=== PATIENT | female | born 1945 | race Two or more races ===

== ENCOUNTER 2018-11-25 19:21 | Emergency (ER) | payer MEDICARE, BC ==
--- NOTE | 2018-11-25 20:23 | NUR ---
CALLED IN WR, NO ANSWER.
--- NOTE | 2018-11-25 21:10 | NUR ---
PATIENT LEFT, NOT IN WR.
== END 2018-11-25 21:11 | disposition left against medical advice (07) ==
LOC: ER 19:27
DX: Z53.21 Procedure and treatment not carried out due to patient leaving prior to being seen by health care provider (principal)

== ENCOUNTER 2021-10-01 15:41 | Inpatient (IN) | payer MEDICARE, BC ==
[~2021-10-01] VITALS: Ht 154.9 cm; Wt 83.9 kg
--- NOTE | 2021-10-01 16:00 | NUR ---
BIB FAMILY C/O CHEST PAIN NON RADIATING HURTS MORE WHEN SHE COUGHS, PT HAD THE FEVER 10DAYS AGO. CHEST PAIN HAS GOTTEN WORSE. PATIENT WAS PLACED COMFORTABLY IN BED. VITALS CHECKED.
[2021-10-01] MEDS ORDERED: FOLI0.8C PO (16:10)
[2021-10-01] MEDS ORDERED: LEVO125T PO (16:10)
[2021-10-01] MEDS ORDERED: FENO134C PO (16:10)
[2021-10-01] MEDS ORDERED: SERT50TA PO (16:10)
[2021-10-01] MEDS ORDERED: RAYOS PO (16:10)
[2021-10-01] MEDS ORDERED: ASCO500C17 PO (16:10)
[2021-10-01] MEDS ORDERED: ASPI-1169 PO (16:10)
[2021-10-01] MEDS ORDERED: METH2.5T14 PO (16:10)
[2021-10-01] MEDS ORDERED: OLME1TAB92 PO (16:10)
[2021-10-01] MEDS ORDERED: AMLO-212 PO (16:10)
[2021-10-01] MEDS ORDERED: SITA50TA PO (16:10)
[2021-10-01] MEDS ORDERED: IBUP-1957 PO (16:10)
[2021-10-01 16:32] LABS: BASOPHILS % (AUTO) 0.7 % (0.0-2.0); EOSINOPHILS % (AUTO) 0.7 % (0.0-6.0); HEMATOCRIT 35 % (33-45); HEMOGLOBIN 11.7 g/dL (11.5-14.8); LYMPHOCYTES # (AUTO) 1.5 K/uL (0.8-4.8); LYMPHOCYTES % (AUTO) 35.5 % (20.0-44.0); MEAN CORPUSCULAR HGB CONC 34 g/dl (31.0-36.0); MEAN CORPUSCULAR VOLUME 93 fL (82-100); MONOCYTES # (AUTO) 0.4 K/uL (0.1-1.30); MONOCYTES % (AUTO) 8.8 % (2.0-12.0); NEUTROPHILS # (AUTO) 2.3 K/uL (1.8-8.9); NEUTROPHILS % (AUTO) 54.3 % (43.0-81.0); PLATELET COUNT (AUTO) 165 K/uL (150-450); RED BLOOD CELL COUNT(AUTO) 3.76 MIL/uL (4.0-5.2); WHITE BLOOD COUNT (AUTO) 4.3 K/uL (4.3-11.0)
--- NOTE | 2021-10-01 16:46 | NUR ---
COVID SWAB DONE AND SENT TO LAB
[2021-10-01 16:53] LABS: D-DIMER 1.01 mg/L(FEU (0.17-0.50)
[2021-10-01 17:16] LABS: CALCIUM, SERUM 9.5 mg/dL (8.5-10.1); CARBON DIOXIDE 30 mmol/L (21-32); CHLORIDE 104 mmol/L (98-107); CREATININE 1.3 mg/dL (0.6-1.3); GLUCOSE 120 mg/dL (74-106); POTASSIUM 3.1 mmol/L (3.5-5.1); SODIUM SERUM 142 mmol/L (136-145); UREA NITROGEN, BLOOD 23 mg/dL (7-18)
[2021-10-01 17:29] LABS: ALANINE AMINOTRANSFERASE 35 U/L (12-78); ALBUMIN 3.7 g/dL (3.4-5.0); ALKALINE PHOSPHATASE 48 U/L (46-116); ASPARTATE AMINOTRANSFERASE 24 U/L (15-37); BILIRUBIN,DIRECT 0.1 mg/dL (0.0-0.2); BILIRUBIN,TOTAL 0.3 mg/dL (0.2-1.0)
[2021-10-01] MEDS ORDERED: IBUPROFEN 800 MG TABLET PO PRN (17:30)
[2021-10-01] MEDS ORDERED: ACETAMINOPHEN 325 MG TABLET PO PRN (17:30)
[2021-10-01] MEDS ORDERED: ONDANSETRON HCL/PF 4 MG/2 ML VIAL IVP PRN (17:30)
[2021-10-01] MEDS ORDERED: Z GUARD REMEDY 4 OZ OINT TP PRN (17:30)
[2021-10-01] MEDS ORDERED: ZOLPIDEM TARTRATE 5 MG TABLET PO PRN (17:30)
[2021-10-01] MEDS ORDERED: MAG HYDROX/AL HYDROX/SIMETH 30 ML UDC PO PRN (17:30)
[2021-10-01] MEDS ORDERED: IV NS 0.9% 1,000 ML BAG IV ONE (17:30)
[2021-10-01] MEDS ORDERED: MAGNESIUM HYDROXIDE 30 ML UDC PO PRN (17:30)
[2021-10-01] MEDS ORDERED: IOHEXOL-350 100 ML VIAL IV ONE (17:42)
[2021-10-01] MEDS ORDERED: IV NS 0.9% 250 ML IV ONE (17:43)
--- NOTE | 2021-10-01 17:44 | NUR ---
PATIENT WHEELED TO CT DEPARTMENT.
[2021-10-01] MEDS ORDERED: LOSARTAN POTASSIUM 25 MG TABLET PO ONE (18:00)
[2021-10-01] MEDS ORDERED: ASPIRIN 81 MG TAB.CHEW PO ONE (19:30)
[2021-10-01] MEDS ORDERED: ASPIRIN 81 MG TAB.CHEW ONE (19:35)
--- NOTE | 2021-10-01 20:08 | NUR ---
310-2 PER RN TUBE SORTER
[2021-10-01 20:34] VITALS: BP 149/79
--- NOTE | 2021-10-01 20:34 | NUR ---
report given to rn
--- NOTE | 2021-10-01 22:00 | NUR ---
RN NOTE RECEIVED CALL FROM PHARMACY REGARDING PATIENT MEDICATION; PHARMACY INFORMED PATIENT HAS NOT ARRIVED TO UNIT YET; PER PHARMACY, NEED TO KNOW WHEN PATIENT TAKES METHOTREXATE SINCE IT IS TAKEN ONCE A WEEK; WILL ASK PATIENT UPON ARRIVAL TO UNIT; PHARMACY CALLED AGAIN REGARDING FENOFIBRATE MED: WE DO NOT CARRY THIS CERTAIN MEDICATION IN HOUSE, WILL ADVISE PATIENT TO HAVE FAMILY MEMBER BRING MEDICATION FOR HER IN AM;
--- NOTE | 2021-10-01 22:34 | NUR ---
PATIENT TRANSFERRED TO [facility]
--- NOTE | 2021-10-01 22:50 | NUR ---
RN NOTE PATIENT VERBALIZED SHE TAKES METHOTREXATE EVERY MONDAY; PHARMACY MADE AWARE; PATIENT INFORMED SO PHARMACY DOES NOT CARRY FENOFIBRATE IN HOUSE, PER PATIENT, SHE DOES NOT NEED TO HAVE IT SHE FEELS IT IS NOT IMPORTANT. PATIENT ADVISED THAT ALL HOME MEDICATION SHOULD BE CONTINUED DURING HOSPITALIZATION, AND COMPLIANCE WITH MEDICATIONS ARE IMPORTANT WELL; PATIENT SAID IT IS OK, NO NEED TO HAVE HER SON BRING; PATIENT'S SON AT BEDSIDE AND AWARE OF SITUATION;
--- NOTE | 2021-10-01 23:30 | NUR ---
TELE/RN NOTE RECEIVED REPORT FROM VAHE LAMBERT. PATIENT IS ALERT AND ORIENTED X 4. ABLE TO MAKE NEEDS KNOWN. DENIES PAIN AT THIS TIME. CONTINUES ON ROOM AIR WITH NO S/SX OF RESPIRATORY DISTRESS NOTED. IV ACCESS TO LEFT AC #18G INTACT, PATENT AND SALINE LOCKED. DENIES SOB OR CP AT THIS TIME. PATIENT IS AMBULATORY WITH STEADY GAIT. CALL LIGHT WITHIN REACH. ASPIRATION, FALL AND SAFETY PRECAUTIONS MAINTAINED. ALL NEEDS ATTENDED TO AT THIS TIME.
[2021-10-02 00:18] VITALS: BP 134/64
[2021-10-02 03:54] VITALS: BP 129/78
--- NOTE | 2021-10-02 06:10 | NUR ---
TELE/RN CLOSING NOTE PATIENT IS CURRENTLY SLEEPING IN BED. ALERT AND ORIENTED X 4. ABLE TO MAKE NEEDS KNOWN. DENIES PAIN AT THIS TIME. CONTINUES ON ROOM AIR WITH NO S/SX OF RESPIRATORY DISTRESS NOTED. IV ACCESS TO LEFT AC #18G INTACT, PATENT AND SALINE LOCKED. DENIES SOB OR CP AT THIS TIME. CONTINUES ON TELE MONITOR WITH CURRENT READING SR. PATIENT IS AMBULATORY WITH STEADY GAIT. CALL LIGHT WITHIN REACH. ASPIRATION, FALL AND SAFETY PRECAUTIONS MAINTAINED. WILL ENDORSE PLAN OF CARE TO ONCOMING RN.
[2021-10-02 06:39] LABS: BASOPHILS % (AUTO) 0.2 % (0.0-2.0); EOSINOPHILS % (AUTO) 1.2 % (0.0-6.0); HEMATOCRIT 32 % (33-45); HEMOGLOBIN 10.9 g/dL (11.5-14.8); LYMPHOCYTES # (AUTO) 2.4 K/uL (0.8-4.8); LYMPHOCYTES % (AUTO) 58.1 % (20.0-44.0); MEAN CORPUSCULAR HGB CONC 35 g/dl (31.0-36.0); MEAN CORPUSCULAR VOLUME 92 fL (82-100); MONOCYTES # (AUTO) 0.4 K/uL (0.1-1.30); MONOCYTES % (AUTO) 9.1 % (2.0-12.0); NEUTROPHILS # (AUTO) 1.3 K/uL (1.8-8.9); NEUTROPHILS % (AUTO) 31.4 % (43.0-81.0); PLATELET COUNT (AUTO) 130 K/uL (150-450); RED BLOOD CELL COUNT(AUTO) 3.43 MIL/uL (4.0-5.2); WHITE BLOOD COUNT (AUTO) 4.1 K/uL (4.3-11.0)
[2021-10-02 07:07] LABS: CALCIUM, SERUM 9.6 mg/dL (8.5-10.1); CARBON DIOXIDE 26 mmol/L (21-32); CHLORIDE 104 mmol/L (98-107); GLUCOSE 91 mg/dL (74-106); MAGNESIUM 1.4 mg/dL (1.8-2.4); PHOSPHORUS 5.1 mg/dL (2.5-4.9); SODIUM SERUM 141 mmol/L (136-145); UREA NITROGEN, BLOOD 18 mg/dL (7-18)
--- NOTE | 2021-10-02 07:25 | NUR ---
DIRECTOR DIVERSITY NOTES PT IN BED, AWAKE, ALERT AND ORIENTED, SEEN AND EXAMINED BY DR. HEDRICK, PLAN OF CARE DISCUSSED WITH PT, VERBALIZED UNDERSTANDING.
[2021-10-02] MEDS ORDERED: Magnesium 1GM/D5W 100ML PREMIX 100 ML IV SCH (07:30)
[2021-10-02] MEDS ORDERED: POTASSIUM CHLORIDE 20 MEQ TAB.PRT.SR PO ONE ×2 (07:30→08:00)
--- NOTE | 2021-10-02 07:30 | NUR ---
TELE/RN OPENING NOTES RECEIVED PATIENT IS AWAKE, ALERT AND ORIENTED X 4. DENIES ANY PAIN AND DISCOMFORT AT THIS TIME. PATIENT IS IN ROOM AIR WITH NO S/SX OF RESPIRATORY DISTRESS NOTED. IV ACCESS TO LEFT AC 18G, PATENT AND SALINE LOCKED. DENIES SOB OR CP AT THIS TIME. ON TELE MONITOR WITH NORMAL SR READING. PATIENT IS COOPERATIVE AND ABLE TO MAKE NEEDS KNOWN. PATIENT IS AMBULATORY WITH STEADY GAIT WITH BRP. SAFETY MEASURES INITIATED: CALL LIGHT WITHIN REACH. ASPIRATION, FALL AND SAFETY PRECAUTIONS MAINTAINED. WILL CONTINUE TO MONITOR FOR GINNY.
[2021-10-02] MEDS: ALBUTEROL FS 2.5 MG/3 ML VIAL.NEB NEB SCH ×5 (07:35→23:45)
[2021-10-02] MEDS: IPRATROPIUM NEB FS 0.5 MG/2.5 ML AMPUL.NEB NEB SCH ×5 (07:35→23:45)
[2021-10-02 08:00] VITALS: BP 124/72
[2021-10-02 08:43] LABS: THYROID STIMULATING HORMONE 0.426 uIU/mL (0.358-3.74)
[2021-10-02] MEDS ORDERED: Medication Not On Formulary EA (Fenofibrate,Micronized (Fenofibrate) 134 MG) PO SCH (09:00)
[2021-10-02] MEDS ORDERED: predniSONE 1 MG TABLET PO SCH (09:00)
[2021-10-02] MEDS ORDERED: Medication Not On Formulary EA (Olmesartan/Hydrochlorothiazide (Olmesartan-Hctz 40-25 mg PO SCH (09:00)
[2021-10-02] MEDS: Magnesium 1GM/D5W 100ML PREMIX 100 ML IV SCH ×3 (09:03→12:43)
[2021-10-02] MEDS: LOSARTAN POTASSIUM 25 MG TABLET PO SCH (09:05)
[2021-10-02] MEDS: ASPIRIN 81 MG TAB.CHEW PO SCH (09:06)
[2021-10-02] MEDS: SERTRALINE HCL 50 MG TABLET PO SCH (09:06)
[2021-10-02] MEDS: ASCORBIC ACID 500 MG TABLET PO SCH (09:06)
[2021-10-02] MEDS: LINAGLIPTIN 5 MG TABLET PO SCH (09:06)
[2021-10-02] MEDS: FOLIC ACID 1 MG TABLET PO SCH (09:06)
[2021-10-02] MEDS: LEVOTHYROXINE SODIUM 125 MCG TABLET PO SCH (09:07)
[2021-10-02] MEDS: HYDROCHLOROTHIAZIDE 25 MG TABLET PO SCH (09:07)
[2021-10-02] MEDS: AMLODIPINE BESYLATE 5 MG TABLET PO SCH (09:08)
[2021-10-02] MEDS: methylPREDNISolone SOD SUCC 125 MG/2ML VIAL IV SCH (09:09)
[2021-10-02 16:00] VITALS: BP 113/52
--- NOTE | 2021-10-02 18:45 | NUR ---
TELE/RN CLOSING NOTES PATIENT IS AWAKE, ALERT AND ORIENTED X 4. DENIES ANY PAIN AND DISCOMFORT AT THIS TIME. PATIENT IS IN ROOM AIR WITH NO S/SX OF RESPIRATORY DISTRESS NOTED. IV ACCESS TO RIGHT FOREARM 22G, PATENT AND SALINE LOCKED. DENIES SOB OR CP AT THIS TIME. ON TELE MONITOR WITH NORMAL SR READING. PATIENT IS COOPERATIVE AND ABLE TO MAKE NEEDS KNOWN. PATIENT IS AMBULATORY WITH STEADY GAIT WITH BRP. SAFETY MEASURES INITIATED: CALL LIGHT WITHIN REACH. ASPIRATION, FALL AND SAFETY PRECAUTIONS MAINTAINED. WILL ENDORSE TO ONCOMING RN FOR GINNY.
[2021-10-02 20:00] VITALS: BP 124/60
--- NOTE | 2021-10-02 21:34 | NUR ---
medical office coordinator Opening Note Pt received laying in bed, awake A&O x4, calm, cooperative. Pt on RA with )2sat 98%; no s/s of respiratory distress, no SOB, non-labored and equal breathing; appears comfortable. Pt attached to external monitor, SR with HR 66; no complaints of chest pain/discomfort. IV access right forearm intact and patent; no s/s of infiltration, flushes well with no resistance. Pt ambulatory, able to ambulate to restroom with steady gait. Bed in lowest position, call light within reach, side rails up x2. Will monitor throughout the night. Addendum: 10/02/21 at 2145 by PRINCESS ILDEFONSO COTTER O2sat 94%, HR 72
[2021-10-03] VITALS: BP 128/76
--- NOTE | 2021-10-03 00:52 | NUR ---
RN Note Pt complains of chest discomfort and rates pain 3-4/10. Pt reports that the discomfort radiates to side of chest and worsens with cough. Pt given Tylenol 650 mg PRN mild pain 1-3. Will monitor for effectiveness.
[2021-10-03] MEDS: ALBUTEROL FS 2.5 MG/3 ML VIAL.NEB NEB SCH ×3 (03:59→11:07)
[2021-10-03] MEDS: IPRATROPIUM NEB FS 0.5 MG/2.5 ML AMPUL.NEB NEB SCH ×3 (03:59→11:07)
[2021-10-03 04:00] VITALS: BP 124/50
[2021-10-03 04:58] VITALS: BP 124/50
[2021-10-03 05:56] LABS: BASOPHILS % (AUTO) 0.1 % (0.0-2.0); HEMATOCRIT 31 % (33-45); HEMOGLOBIN 10.9 g/dL (11.5-14.8); LYMPHOCYTES # (AUTO) 0.8 K/uL (0.8-4.8); LYMPHOCYTES % (AUTO) 24.3 % (20.0-44.0); MEAN CORPUSCULAR HGB CONC 35 g/dl (31.0-36.0); MEAN CORPUSCULAR VOLUME 92 fL (82-100); MONOCYTES # (AUTO) 0.4 K/uL (0.1-1.30); MONOCYTES % (AUTO) 12.2 % (2.0-12.0); NEUTROPHILS # (AUTO) 2.1 K/uL (1.8-8.9); NEUTROPHILS % (AUTO) 63.4 % (43.0-81.0); PLATELET COUNT (AUTO) 124 K/uL (150-450); RED BLOOD CELL COUNT(AUTO) 3.37 MIL/uL (4.0-5.2); WHITE BLOOD COUNT (AUTO) 3.4 K/uL (4.3-11.0)
[2021-10-03 06:03] LABS: CALCIUM, SERUM 9.1 mg/dL (8.5-10.1); CARBON DIOXIDE 24 mmol/L (21-32); CHLORIDE 105 mmol/L (98-107); CREATININE 1.1 mg/dL (0.6-1.3); GLUCOSE 123 mg/dL (74-106); MAGNESIUM 1.9 mg/dL (1.8-2.4); POTASSIUM 3.4 mmol/L (3.5-5.1); SODIUM SERUM 140 mmol/L (136-145); UREA NITROGEN, BLOOD 25 mg/dL (7-18)
--- NOTE | 2021-10-03 06:21 | NUR ---
review specialist Closing Note Pt in bed, A&O x4, slept intermittently throughout the night. Pt on RA with O2sat 99%; no s/s of respiratory distress, no SOB, non-labored and equal breathing. Pt attached to external monitor, SR with HR 66; Pt had complaint of chest discomfort last night rated as 3-4/10; pt given Tylenol 650 mg and was effective. IV access right forearm intact and patent; no s/s of infiltration, flushes well with no resistance; no fluids or meds running at the moment. Pt ambulatory, able to ambulate to restroom with steady gait. Bed in lowest position, call light within reach, side rails up x2. Will endorse to dayshift nurse to continue care.
--- NOTE | 2021-10-03 07:32 | NUR ---
RN OPENING NOTES Patient seen comfortably lying in bed, no shortness of breath, no apparent distress noted, breathing even and unlabored, denies any pain or discomfort at this time, no grimacing. Call light left within reach, safety precautions in place, brakes locked, side rails up X 2.
[2021-10-03] MEDS: LEVOTHYROXINE SODIUM 125 MCG TABLET PO SCH (07:35)
[2021-10-03 08:00] VITALS: BP 131/63
[2021-10-03] MEDS ORDERED: POTASSIUM CHLORIDE 20 MEQ TAB.PRT.SR PO SCH (08:30)
[2021-10-03] MEDS ORDERED: METHOTREXATE SODIUM (2.5MG) 2.5 MG TABLET PO SCH (09:00)
[2021-10-03 09:04] VITALS: BP 131/63
[2021-10-03] MEDS: ASPIRIN 81 MG TAB.CHEW PO SCH (09:04)
[2021-10-03] MEDS: LINAGLIPTIN 5 MG TABLET PO SCH (09:04)
[2021-10-03] MEDS: FOLIC ACID 1 MG TABLET PO SCH (09:04)
[2021-10-03] MEDS: SERTRALINE HCL 50 MG TABLET PO SCH (09:04)
[2021-10-03] MEDS: HYDROCHLOROTHIAZIDE 25 MG TABLET PO SCH (09:04)
[2021-10-03] MEDS: LOSARTAN POTASSIUM 25 MG TABLET PO SCH (09:04)
[2021-10-03] MEDS: AMLODIPINE BESYLATE 5 MG TABLET PO SCH (09:04)
[2021-10-03] MEDS: ASCORBIC ACID 500 MG TABLET PO SCH (09:04)
[2021-10-03] MEDS: methylPREDNISolone SOD SUCC 125 MG/2ML VIAL IV SCH (09:05)
--- NOTE | 2021-10-03 12:30 | NUR ---
RT Instructed pt on how to use Incentive Spirometer.
--- NOTE | 2021-10-03 13:00 | NUR ---
Patient to be discharged home today, no apparent distress noted, denies any pain or discomfort, no dizziness, no palpitations, no chest pain, respirations even and unlabored, no shortness of breath, remained afebrile. Patient made aware of the situation, she signed all discharge paperworks, all belongings taken, inventory list signed by patient. Health teaching provided, verbalized understanding and gratitude. Reminded patient to schedule a follow up appointment with her primary care physician and to schedule an appointment with Dr. Garrett Richardson (head and neck surgeon; address and office number provided to patient), patient verbalized understanding and gratitude. Skin intact, warm to touch, no pallor or cyanosis noted. Peripheral IV on her right forearm removed and covered with dry dressing, no excessive bleeding noted. Name wristband removed prior to discharge. Son came to warehouse order picker patient, patient left unit at 1300pm, stable condition, surgical facial mask and exit care folder with paperwork handed to patient.
== END 2021-10-03 13:00 | disposition home or self-care (01) | DRG 206 ==
LOC: ER 15:49 → TELE 20:27 → MED 10-03 09:51
PROVIDERS: ADMIT Family Medicine; ATTEND Family Medicine
DX: M94.0 Chondrocostal junction syndrome [Tietze] (principal); E66.01 Morbid (severe) obesity due to excess calories; Z68.35 Body mass index [BMI] 35.0-35.9, adult; E87.6 Hypokalemia; Z20.822 Contact with and (suspected) exposure to COVID-19; E78.1 Pure hyperglyceridemia; E78.5 Hyperlipidemia, unspecified; E83.42 Hypomagnesemia; M19.90 Unspecified osteoarthritis, unspecified site; Z79.890 Hormone replacement therapy; Z85.850 Personal history of malignant neoplasm of thyroid; E89.0 Postprocedural hypothyroidism; Z98.890 Other specified postprocedural states; Z79.82 Long term (current) use of aspirin; Z79.84 Long term (current) use of oral hypoglycemic drugs; Z79.899 Other long term (current) drug therapy; Z72.0 Tobacco use; F32.A Depression, unspecified; E11.65 Type 2 diabetes mellitus with hyperglycemia; R09.1 Pleurisy; I10 Essential (primary) hypertension; J40 Bronchitis, not specified as acute or chronic; K44.9 Diaphragmatic hernia without obstruction or gangrene
CPT/HCPCS: 36415; 71045-TC; 80048-TC; 80061-TC; 80076-TC; 82962-TC; 83735-TC; 83880; 84100-TC; 84439-TC; 84443-TC; 84484-TC; 85025-TC; 85378-TC; 85730-TC; 87081-TC; 93307-TC; 94799-TC; C9803; G0378; J2930; J3475; J7030; J7050; J7512; Q9967